=== PATIENT | male | born 1960 | race Caucasian/White ===

== ENCOUNTER 2019-09-16 07:39 | Emergency (ER) | payer OTHER ==
[2019-09-16] MEDS ORDERED: Ketorolac 30 MG/ML SDV IVPUSH ONE (07:51)
[2019-09-16] MEDS ORDERED: Sodium Chloride 0.9% 1,000 ML IV ONE (07:51)
[2019-09-16] MEDS ORDERED: Ondansetron 4 MG/2 ML SDV IVPUSH ONE (07:53)
--- NOTE | 2019-09-16 07:59 | EDM.PDOC ---
ED HPI GENERAL MEDICAL PROBLEM - General Chief Complaint: Flank Pain Stated Complaint: KIDNEY STONE Time Seen by Provider: 09/16/19 07:43 Source of Information: Reports: Patient History Limitations: Reports: No Limitations, Respiratory Distress - History of Present Illness INITIAL COMMENTS - FREE TEXT/NARRATIVE: 59-year-old gentleman presents to the emergency room with right-sided flank pain. Patient states pain is similar to his kidney stone 20 years ago. Patient denies fever chills but says he has vomited x2. Patient is on no medication. Patient has no medical problems. Patient has no allergies Onset: Today, Sudden Duration: Hour(s):, Getting Worse Location: Reports: Back Quality: Reports: Ache, Same as Previous Episode Severity: Severe Improves with: Reports: None Worsens with: Reports: None Associated Symptoms: Reports: No Other Symptoms Right Flank Pain Score (Numeric/FACES): 8 - Related Data Allergies Allergy/AdvReac Type Severity Reaction Status Date / Time No Known Allergies Allergy Verified 09/16/19 07:50 Home Meds: Home Meds . [No Known Home Meds] 09/16/19 [History] Past Medical History HEENT History: Reports: None Cardiovascular History: Reports: None Respiratory History: Reports: None Gastrointestinal History: Reports: None Genitourinary History: Reports: Renal Calculus Other Genitourinary History: 30 years ago Musculoskeletal History: Reports: None Neurological History: Reports: None Psychiatric History: Reports: None Endocrine/Metabolic History: Reports: None Hematologic History: Reports: None Immunologic History: Reports: None Oncologic (Cancer) History: Reports: None Dermatologic History: Reports: None - Infectious Disease History Infectious Disease History: Reports: None - Past Surgical History Head Surgeries/Procedures: Reports: None Social & Family History - Tobacco Use Smoking Status *Q: Current Every Day Smoker Years of Tobacco use: 40 Packs/Tins Daily: 1 - Caffeine Use Caffeine Use: Reports: Coffee - Recreational Drug Use Recreational Drug Use: No ED ROS GENERAL - Review of Systems Review Of Systems: See Below Constitutional: Reports: No Symptoms. Denies: Fever, Chills, Malaise HEENT: Reports: No Symptoms. Denies: Contact Lenses, Dental Pain, Glasses Respiratory: Reports: No Symptoms. Denies: Shortness of Breath, Wheezing, Pleuritic Chest Pain Cardiovascular: Reports: No Symptoms. Denies: Chest Pain, Blood Pressure Problem, Claudication Endocrine: Reports: No Symptoms. Denies: Fatigue, High Glucose, Low Glucose GI/Abdominal: Reports: Vomiting : Reports: Flank Pain, Pain. Denies: Discharge, Dysuria, Incontinence, Irregular Menses Musculoskeletal: Reports: No Symptoms. Denies: Neck Pain, Shoulder Pain, Leg Pain, Foot Pain Skin: Reports: No Symptoms. Denies: Cyanosis, Jaundice, Mottled, Bruising, Pruritis Neurological: Reports: No Symptoms Psychiatric: Reports: No Symptoms Hematologic/Lymphatic: Reports: No Symptoms Immunologic: Reports: No Symptoms ED EXAM, RENAL/ - Physical Exam Exam: See Below Text/Narrative:: -year-old gentleman presenting to the emergency room with right-sided flank pain. Upon exam patient is in obvious distress complaining of right back pain. Patient rates his discomfort 8 out of 10. HEENT is normal Chest normal S1-S2 Clear to auscultation Abdomen soft nontender. Patient has exquisite flank pain to the right side. Patient has no pain over his spinous processes Extremities are all normal Exam Limited By: No Limitations General Appearance: Alert, WD/WN, No Apparent Distress, Severe Distress Eye Exam: Bilateral Eye: Normal Fundi, Normal Inspection Ears: Normal External Exam, Normal Canal, Hearing Grossly Normal, Normal TMs Nose: Normal Inspection, Normal Mucosa, No Blood Throat/Mouth: Normal Inspection, Normal Lips, Normal Teeth, Normal Oropharynx, Normal Voice Head: Atraumatic, Normocephalic Neck: Normal Inspection, Non-Tender, Full Range of Motion Respiratory/Chest: No Respiratory Distress, Lungs Clear, Normal Breath Sounds, No Accessory Muscle Use, Chest Non-Tender Back Exam: Normal Inspection, Full Range of Motion Extremities: Normal Inspection, Normal Range of Motion, Non-Tender Neurological: Alert, Oriented, CN II-XII Intact, Normal Cognition, Normal Reflexes, No Motor/Sensory Deficits Psychiatric: Normal Affect, Normal Mood Skin Exam: Warm, Dry, Intact, Normal Color, No Rash Lymphatic: No Adenopathy Course - Vital Signs Text/Narrative:: This 51-year-old gentleman came with right-sided flank pain similar to his previous kidney stone. Patient ended up having a kidney stone on x-ray 4.9 mm obstructing stone on the right side. Neurologist is out of town and patient will be referred to Dr. [facility] call tomorrow. She is much improved after Toradol and IV fluids. Patient instructed to follow-up with urology return for any problems and will be giving medications for pain. . Last Recorded V/S: Last Vital Signs Temp 97.0 F 09/16/19 08:00 Pulse 66 09/16/19 08:00 Resp 18 09/16/19 08:00 BP 129/66 09/16/19 08:00 Pulse Ox 97 09/16/19 08:00 - Orders/Labs/Meds Orders: Active Orders 24 hr Category Date Time Status COMPREHENSIVE METABOLIC PN,CMP [CHEM] Stat Lab 09/16/19 08:20 Received Labs: Laboratory Tests 09/16/19 09/16/19 Range/Units 08:01 08:20 WBC 8.77 (4.0-11.0) K/uL RBC 5.23 (4.50-5.90) M/uL Hgb 15.7 (13.0-17.0) g/dL Hct 47.4 (38.0-50.0) % MCV 90.6 (80.0-98.0) fL MCH 30.0 (27.0-32.0) pg MCHC 33.1 (31.0-37.0) g/dL RDW Std Deviation 48.3 (28.0-62.0) fl RDW Coeff of Cris 15 (11.0-15.0) % Plt Count 196 (150-400) K/uL MPV 9.40 (7.40-12.00) fL Neut % (Auto) 79.6 (48.0-80.0) % Lymph % (Auto) 10.1 L (16.0-40.0) % [place] % (Auto) 8.7 (0.0-15.0) % Eos % (Auto) 1.4 (0.0-7.0) % Baso % (Auto) 0.2 (0.0-1.5) % Neut # (Auto) 7.0 H (1.4-5.7) K/uL Lymph # (Auto) 0.9 (0.6-2.4) K/uL [place] # (Auto) 0.8 (0.0-0.8) K/uL Eos # (Auto) 0.1 (0.0-0.7) K/uL Baso # (Auto) 0.0 (0.0-0.1) K/uL Nucleated RBC % 0.0 /100WBC Nucleated RBCs # 0 K/uL Urine Color YELLOW Urine Appearance CLEAR Urine pH 6.0 (5.0-8.0) Ur Specific [place] >= 1.030 (1.001-1.035) Urine Protein NEGATIVE (NEGATIVE) mg/dL Urine Glucose (UA) NEGATIVE (NEGATIVE) mg/dL Urine Ketones NEGATIVE (NEGATIVE) mg/dL Urine Occult Blood LARGE H (NEGATIVE) Urine Nitrite NEGATIVE (NEGATIVE) Urine Bilirubin NEGATIVE (NEGATIVE) Urine Urobilinogen 0.2 (<2.0) EU/dL Ur Leukocyte Esterase NEGATIVE (NEGATIVE) Urine RBC 30-40 (0-2/HPF) Urine WBC 0-2 (0-5/HPF) Ur Epithelial Cells RARE (NONE-FEW) Urine Bacteria FEW (NEGATIVE) Meds: Medications Discontinued Medications Generic Name Dose Route Start Last Admin Trade Name Freq PRN Reason Stop Dose Admin Sodium Chloride 1,000 mls @ 1,000 mls/hr 09/16/19 07:51 09/16/19 08:18 Normal Saline IV 09/16/19 08:50 1,000 mls/hr .Bolus ONE Administration Ketorolac Tromethamine 30 mg 09/16/19 07:51 09/16/19 08:18 Toradol IVPUSH 09/16/19 07:52 30 mg ONETIME ONE Administration Ondansetron HCl 4 mg 09/16/19 07:53 09/16/19 08:18 Zofran IVPUSH 09/16/19 07:54 4 mg ONETIME ONE Administration Departure - Departure Time of Disposition: 09:19 Disposition: DC/Tfer to Hospice - Home 51 Condition: Good Clinical Impression: Kidney stone on right side - Discharge Information *PRESCRIPTION DRUG MONITORING PROGRAM REVIEWED*: No Instructions: Kidney Stones, [id number] Referrals: PCP,None [Primary Care Provider] - Forms: ED Department Discharge Additional Instructions: Follow up with Dr. [facility] in [place] [phone] call for appointment Sepsis Event Note - Focused Exam Vital Signs: Vital Signs Temp Pulse Resp BP Pulse Ox 09/16/19 08:00 97.0 F 66 18 129/66 97 09/16/19 07:58 97.0 F 66 18 129/66 97 Date Exam was Performed: 09/16/19 Time Exam was Performed: 09:15 - My Orders Last 24 Hours: My Active Orders 09/16/19 08:20 COMPREHENSIVE METABOLIC PN,CMP [CHEM] Stat - Assessment/Plan Last 24 Hours: My Active Orders 09/16/19 08:20 COMPREHENSIVE METABOLIC PN,CMP [CHEM] Stat
--- NOTE | 2019-09-16 08:44 | CT ---
CT abdomen and pelvis Technique: Multiple axial sections were obtained from above the dome of the diaphragm inferiorly through the pubic symphysis. Intravenous and oral contrast not utilized. Study has been performed as a ureteral stone protocol. Comparison: No previous CT abdomen or pelvis exam is available. Findings: Right ureter is dilated. This finding is caused by an obstructing stone located at the UVJ measuring 4.9 mm. No other abnormal ureteral calculi are seen. No renal calculi are identified. Low density areas are noted within both kidneys most likely representing cysts. There is a small high density area within the upper left kidney measuring 5 mm. Several very small nonobstructing calculi are seen within the right kidney. No calcifications are seen within the left kidney. Other findings: Visualized lung bases show nothing acute. Noncontrast appearance of the liver appears within normal limits. Spleen appears within normal limits in size. Adrenal glands show no nodule. Pancreas is within normal limits. Gallbladder contains no calcified gallstones. Aorta shows no aneurysm with mild atherosclerotic calcification. No retroperitoneal adenopathy or mesenteric abnormalities are seen. Appendix is visualized which is normal in size. No pelvic mass or adenopathy is seen. Very small fat-containing bilateral inguinal hernias. Bone window settings were reviewed which shows slight degenerative change within the spine. Small amount of epidural air is seen within the central canal compatible with annular rupture of vacuum disc phenomena. Lucent lesion noted within the right iliac wing showing sclerotic rim measuring 2.5 cm most likely representing a benign bone lesion. Impression: 1. 4.9 mm obstructing stone within the distal right ureter. 2. Small cortical cysts within both kidneys. Probable hemorrhagic cyst within the right kidney measuring 5 mm. Several very small nonobstructing calculi seen within the right kidney. 3. Other findings believed to be incidental as noted above. Diagnostic code #3 This report was dictated in [place] Standard Time
[2019-09-16 09:13] LABS: BLOOD UREA NITROGEN,BUN 14 mg/dL (7.0-18.0); CARBON DIOXIDE,CO2 28.7 mmol/L (21.0-32.0); CHLORIDE,CL 105 mmol/L (98-107); GLUCOSE RANDOM 133 mg/dL (74-106); POTASSIUM,K 3.8 mmol/L (3.5-5.1); SODIUM,NA 143 mmol/L (136-148)
== END 2019-09-16 09:58 | disposition home or self-care (01) ==
LOC: MW.ED 07:39
DX: N20.2 Calculus of kidney with calculus of ureter (principal); F17.210 Nicotine dependence, cigarettes, uncomplicated
CPT/HCPCS: 36415; 74176; 80053; 81001; 85025; 99284; J1885; J2405; J7030

== ENCOUNTER 2023-06-11 20:42 | Observation (INO) | payer BC, OTHER ==
[2023-06-11] MEDS ORDERED: Sodium Chloride 0.9% 2.5 ML Syringe FLUSH PRN (22:28)
[2023-06-11] MEDS ORDERED: Sodium Chloride 0.9% 10 ML Syringe FLUSH PRN (22:28)
[2023-06-11 22:47] LABS: BASOPHILS ABSOLUTE AUTO 0.07 K/uL (0.00-0.20); BASOPHILS PERCENT AUTO 0.4 % (0.0-1.0); EOSINOPHILS ABSOLUTE AUTO 0.08 K/uL (0.00-0.45); EOSINOPHILS PERCENT AUTO 0.5 % (0.0-6.0); HEMATOCRIT 47.5 % (42.0-52.0); HEMOGLOBIN 16.4 g/dL (14.0-18.0); IMMATURE GRAN ABSOLUTE AUTO 0.04 K/uL (0.00-0.05); IMMATURE GRAN PERCENT AUTO 0.2 % (0.0-0.4); LYMPHOCYTES ABSOLUTE AUTO 2.51 K/uL (1.00-4.80); MEAN CORPUSCULAR HEMOGLOBIN 30.3 pg (28.0-32.0); MEAN CORPUSCULAR HGB CONC 34.5 g/dL (32.0-36.0); MEAN CORPUSCULAR VOLUME 87.8 fL (83.0-99.0); MEAN PLATELET VOLUME 9.2 fL (9.4-12.4); MONOCYTES ABSOLUTE AUTO 1.06 K/uL (0.00-0.80); MONOCYTES PERCENT AUTO 6.3 % (0.0-8.0); NEUTROPHILS ABSOLUTE AUTO 13.02 K/uL (1.80-7.70); NEUTROPHILS PERCENT AUTO 77.6 % (41.0-71.0); PLATELET COUNT,PLT 226 K/uL (150-400); RED BLOOD CELL COUNT 5.41 M/uL (4.52-5.90); WHITE BLOOD CELL COUNT,WBC 16.78 K/uL (3.9-11.3)
[2023-06-11 22:59] LABS: APPEARANCE,URINE SLT CLOUDY; GLUCOSE,URINE NEGATIVE (NEGATIVE); KETONES,URINE 40 mg/dL (NEGATIVE); LEUKOCYTE ESTERASE,URINE NEGATIVE (NEGATIVE); NITRITE,URINE NEGATIVE (NEGATIVE); OCCULT BLOOD,URINE LARGE (NEGATIVE); PH,URINE 5.5 (5.0-8.0); PROTEIN,URINE NEGATIVE (NEGATIVE); UROBILINOGEN,URINE 0.2 EU/dL (<2.0)
[2023-06-11 23:02] LABS: BILIRUBIN,URINE SMALL (NEGATIVE); COLOR,URINE YELLOW
[2023-06-11 23:03] LABS: BACTERIA,URINE FEW (NEGATIVE); EPITHELIAL CELLS,URINE NOT SEEN (NONE-FEW); RBC,URINE 40-50 (0-2/HPF); WBC,URINE 0-2 (0-5/HPF)
[2023-06-11 23:04] LABS: MUCUS,URINE MODERATE (NONE-MOD)
[2023-06-11 23:11] LABS: A/G RATIO 1.2 (0.9-1.6); BILIRUBIN TOTAL 0.7 mg/dL (0.2-1.0); CALCIUM 9.3 mg/dL (8.5-10.1); CARBON DIOXIDE,CO2 24.1 mmol/L (21.0-32.0); CREATININE 0.9 mg/dL (0.8-1.3); EST CRCL DRUG DOSING (CG) 79.56 mL/min; PROTEIN TOTAL,TP 7.3 g/dL (6.4-8.2)
[2023-06-11 23:15] LABS: LACTIC ACID 0.5 mmol/L (0.4-2.0)
[2023-06-11] MEDS ORDERED: Iopamidol 755 MG/ML 500 ML Multipack Bottle IVPUSH ONE (23:24)
[2023-06-11] MEDS ORDERED: Morphine 4 MG/ML Syringe IVPUSH STA (23:33)
[2023-06-12] MEDS ORDERED: Piperacillin/Tazobactam 3.375 GM in Sodium Chloride 0.9% 100 ML IV ONE (01:24)
[2023-06-12] MEDS ORDERED: Sodium Chloride 0.9% 1,000 ML IV ONE (01:24)
[2023-06-12] MEDS ORDERED: Rocuronium Bromide 50 MG/5 ML Syringe IVPUSH ONE (01:25)
[2023-06-12] MEDS ORDERED: cefOXitin 2 GM in Sodium Chloride 0.9% 50 ML IV ONE (01:35)
[2023-06-12] MEDS ORDERED: Ondansetron 4 MG/2 ML SDV IVPUSH PRN ×2 (01:37→13:26)
[2023-06-12] MEDS ORDERED: Morphine 2 MG/ML SYRINGE IVPUSH STA (01:45)
[2023-06-12] MEDS: Morphine 2 MG/ML SYRINGE IVPUSH PRN ×3 (02:53→10:44)
[2023-06-12] MEDS: Lactated Ringers 1,000 ML IV SCH ×2 (03:00→10:31)
[2023-06-12] MEDS ORDERED: Bupivacaine 0.25% 30 ML SDV ONE (13:03)
[2023-06-12] MEDS ORDERED: dexmedeTOMIDine HCl 200 MCG/2 ML SDV ONE (13:15)
[2023-06-12] MEDS ORDERED: fentaNYL 100 MCG/2 ML SDV ONE (13:15)
[2023-06-12] MEDS ORDERED: Propofol 200 MG/20 ML SDV ONE (13:15)
[2023-06-12] MEDS ORDERED: Naloxone 0.4 MG/ML SDV IVPUSH PRN (13:26)
[2023-06-12] MEDS ORDERED: Metoclopramide 10 MG/2 ML SDV IVPUSH PRN (13:26)
[2023-06-12] MEDS ORDERED: HYDROmorphone 1 MG/ML Syringe IVPUSH PRN (13:26)
[2023-06-12] MEDS ORDERED: droPERidol 5 MG/2 ML SDV IVPUSH PRN (13:26)
[2023-06-12] MEDS ORDERED: Albuterol 0.083% 2.5 MG/3 ML Neb Soln NEB PRN (13:26)
[2023-06-12] MEDS ORDERED: fentaNYL 50 MCG/ML SDV IVPUSH PRN (13:26)
[2023-06-12] MEDS ORDERED: Morphine 2 MG/ML SYRINGE IVPUSH PRN (13:26)
[2023-06-12] MEDS ORDERED: Bupivacaine 0.5% 30 ML SDV ONE (13:32)
[2023-06-12] MEDS ORDERED: Magnesium Sulfate (4.06 MEQ/ML) 5 GM/10 ML SDV ONE (13:54)
[2023-06-12] MEDS ORDERED: Ondansetron 4 MG/2 ML SDV ONE (14:05)
[2023-06-12] MEDS ORDERED: Dexamethasone 4 MG/ML 5 ML MDV ONE (14:05)
[2023-06-12] MEDS ORDERED: ePHEDrine 50 MG/ML SDV ONE (14:24)
[2023-06-12] MEDS ORDERED: Ketorolac 30 MG/ML SDV ONE (14:27)
[2023-06-12] MEDS ORDERED: Sugammadex Sodium 200 MG/2 ML VIAL ONE (14:27)
[2023-06-12] MEDS ORDERED: Acetaminophen/HYDROcodone 325-5 MG Tab PO PRN (14:57)
[2023-06-12] MEDS ORDERED: Lactated Ringers 1,000 ML IV SCH (15:00)
[2023-06-12] MEDS ORDERED: Nicotine 14 MG/24 Hr Patch TRDERM SCH (15:31)
[2023-06-13] MEDS: Acetaminophen/HYDROcodone 325-5 MG Tab PO PRN ×2 (03:21→10:08)
[2023-06-13] MEDS ORDERED: Nicotine 14 MG/24 Hr Patch TRDERM SCH (15:45)
== END 2023-06-13 12:39 | disposition home or self-care (01) ==
LOC: MW.ED 20:42 → MW.MS 06-12 01:24
PROVIDERS: ADMIT Surgery; ATTEND Surgery
DX: K35.31 Acute appendicitis with localized peritonitis and gangrene, without perforation (principal); F17.210 Nicotine dependence, cigarettes, uncomplicated
CPT/HCPCS: 36415; 44970; 74177; 80053; 81001; 83605; 83690; 85025; 96374; 96375; 96376; 99285; A9270; J0131; J0665; J0694; J1100; J1885; J2270; J2405; J2704; J3010; J3475; J3490; J7030; J7120; Q9967; 00840; 64488; 96361; 96365; G0378